=== PATIENT | male | born 1960 | race Caucasian/White ===

== ENCOUNTER 2018-03-12 12:43 | Inpatient (IN) | payer BC ==
[~2018-03-12] VITALS: Ht 167.6 cm; Wt 95.2 kg
[~2018-03-12 12:43] MED LIST: ZESTORETIC 12.51 TAB PO
[2018-05-19] VITALS (10 sets, daily range): BP systolic 118–146; BP diastolic 73–89; PULSE 63–86; TEMP 97.8–99.5
[2018-05-19] MEDS ORDERED: MASON NATURAL1200 MG PO (03:12)
[2018-05-19] MEDS ORDERED: ASPIRIN E.C. 8181 MG PO (03:13)
[2018-05-19] MEDS ORDERED: GLUCOSAMINE 1000 PO (03:13)
[2018-05-19] MEDS ORDERED: ZYLOPRIM 100MG100 MG PO (03:14)
[2018-05-19] MEDS ORDERED: ADVIL200 MG PO (06:10)
[2018-05-20] VITALS: BP 134/78; PULSE 94; TEMP 98.6
[2018-05-20 03:29] VITALS: BP 133/68; BP 173/68; PULSE 60; TEMP 97.7
[2018-05-20 07:30] LABS: HEMATOCRIT 37.5 % (42.0-52.0); HEMOGLOBIN 12.7 g/dl (13.5-18.0)
[2018-05-20 08:06] VITALS: BP 118/49; PULSE 95; TEMP 99
[2018-05-20 11:39] VITALS: BP 113/68; PULSE 91; TEMP 98.4
[2018-05-20 16:16] VITALS: BP 124/69; PULSE 91; TEMP 98.7
[2018-05-20 19:47] VITALS: BP 112/62; PULSE 100; TEMP 98.3
[2018-05-20] MEDS ORDERED: XARELTO10 MG PO (22:05)
[2018-05-20] MEDS ORDERED: NORCO 325 MG-7.1 TAB PO (22:07)
[2018-05-20] MEDS ORDERED: ROXICODONE 55 MG/TAB PO (22:08)
[2018-05-21 00:17] VITALS: BP 114/56; PULSE 92; TEMP 98.9
[2018-05-21 04:32] VITALS: BP 133/60; PULSE 100; TEMP 97.9
[2018-05-21 08:25] VITALS: BP 153/89; PULSE 118; TEMP 98
[2018-05-21 11:28] VITALS: BP 166/66; PULSE 111; TEMP 99.5
== END 2018-05-21 14:44 | disposition home or self-care (01) | DRG 462 ==
LOC: JCC 05-19 05:39
PROVIDERS: Orthopaedic Surgery
PROC: 0SRC0J9 Replacement of Right Knee Joint with Synthetic Substitute, Cemented, Open Approach (ICD-10-PCS; 2018-05-19)
PROC: 0SRD0J9 Replacement of Left Knee Joint with Synthetic Substitute, Cemented, Open Approach (ICD-10-PCS; principal; 2018-05-19 15:20)
DX: M17.0 Bilateral primary osteoarthritis of knee (principal); I10 Essential (primary) hypertension; E78.00 Pure hypercholesterolemia, unspecified; K59.00 Constipation, unspecified
CPT/HCPCS: A4314; A9284; C1713; C1776; J0690; J1885; J2175; J2250; J2270; J2704; J3010; J7120

== ENCOUNTER → 2018-05-14 | Outpatient (CLI) | payer BC ==
[~2018-05-14] MED LIST changes: +PRINIVIL10 MG; -ZESTORETIC 12.51 TAB PO
[2018-05-14 12:48] LABS: HIV 1/2 Antibodies Non-Reactive; HIV-1p24 Antigen Non-Reactive
== END ==
LOC: COL.LAB 11:21
PROVIDERS: Orthopaedic Surgery
DX: Z01.812 Encounter for preprocedural laboratory examination (principal); M17.0 Bilateral primary osteoarthritis of knee

== ENCOUNTER 2022-01-26 06:05 | Day surgery (SDC) | payer BC ==
[2022-01-26] VITALS (7 sets, daily range): BP systolic 107–139; BP diastolic 63–97; PULSE 77–84; TEMP 97.8–98.4
[~2022-01-26] VITALS: Ht 165.1 cm; Wt 100.0 kg
[~2022-01-26 06:05] MED LIST changes: +ADVIL200 MG PO; +ASPIRIN E.C. 8181 MG PO; +GLUCOSAMINE 1000 PO; +MASON NATURAL1200 MG PO; +NORCO 325 MG-7.1 TAB PO; -PRINIVIL10 MG; +ROXICODONE 55 MG/TAB PO; +XARELTO10 MG PO; +ZESTORETIC 12.51 TAB PO; +ZYLOPRIM 100MG100 MG PO
[2022-01-26] MEDS ORDERED: NIACIN 100100 MG/TAB PO (06:48)
[2022-01-26] MEDS ORDERED: ASPIRIN 32325 MG/TAB PO (06:49)
[2022-01-26] MEDS ORDERED: NORCO 325 MG-51 TAB PO (08:52)
[2022-01-26] MEDS ORDERED: PYRIDIUM 100MG100 MG PO (08:53)
--- NOTE | 2022-01-26 09:40 | NUR ---
Pt back from cysto, has already urinated. VSS. Denies pain, eating and drinking will continue to monitor.
--- NOTE | 2022-01-26 12:05 | NUR ---
Pt tolerated eating and drinking without issues. Pain well controlled. VS WNL. Pt urinated several times after procedure. IV to RFA dc'd catheter tip intact. Discharge paperwork and instructions reviewed with patient. All questions answered. Pt walked out of facility by staff member.
== END 2022-01-26 12:07 | disposition home or self-care (01) ==
LOC: SURG 06:05 → SDCO 06:05
DX: N13.2 Hydronephrosis with renal and ureteral calculous obstruction (principal); E66.9 Obesity, unspecified; Z68.36 Body mass index [BMI] 36.0-36.9, adult; Z79.82 Long term (current) use of aspirin
CPT/HCPCS: OP; C1769; C2617; J0690; J1100; J1885; J1940; J1956; J2405; J2704; J3010; Q9966

== ENCOUNTER → 2022-02-19 | Outpatient (CLI) | payer BC ==
[~2022-02-19] MED LIST changes: +ASPIRIN 32325 MG/TAB PO; +NIACIN 100100 MG/TAB PO; +NORCO 325 MG-51 TAB PO; +PYRIDIUM 100MG100 MG PO
== END ==
LOC: COL.RAD 14:29
DX: N20.0 Calculus of kidney (principal)